=== PATIENT | female | born 1985 | race Caucasian/White ===

== ENCOUNTER → 2016-05-16 | Outpatient (CLI) | payer BC ==
[2016-05-16 13:09] LABS: ABSOLUTE BASOPHILS # (AUTO) 0.1 10^3/uL (0.0-0.2); ABSOLUTE EOSINOPHILS # (AUTO) 0.3 10^3/uL (0.0-0.6); ABSOLUTE LYMPHOCYTES (AUTO) 3.1 10^3/uL (0.5-4.7); ABSOLUTE MONOCYTES (AUTO) 0.3 10^3/uL (0.1-1.4); BASOPHILS % (AUTO) 0.8 % (0-2); EOSINOPHILS % (AUTO) 3.9 % (0-6); HEMATOCRIT 36.2 % (36.0-47.0); HGB HCT DIFFERENCE -0.2; LYMPHOCYTES % (AUTO) 39.8 % (13-45); MEAN CORPUSCULAR HEMOGLOBIN 29.1 pg (27.0-33.4); MEAN CORPUSCULAR HGB CONC 33.2 g/dL (32.0-36.0); MEAN CORPUSCULAR VOLUME 88 fl (80-97); MONOCYTES % (AUTO) 4.4 % (3-13); RED BLOOD COUNT 4.12 10^6/uL (3.72-5.28); SEGMENTED NEUTROPHILS % (AUTO) 51.1 % (42-78); WHITE BLOOD COUNT 7.8 10^3/uL (4.0-10.5)
[2016-05-16 13:23] LABS: ALANINE AMINOTRANSFERASE 28 U/L (9-52); ALBUMIN 4.5 g/dL (3.5-5.0); ALKALINE PHOSPHATASE 64 U/L (38-126); ANION GAP 9 (5-19); ASPARTATE AMINO TRANSFERASE 16 U/L (14-36); BILIRUBIN,TOTAL 0.3 mg/dL (0.2-1.3); BLOOD UREA NITROGEN 12 mg/dL (7-20); CARBON DIOXIDE 26 mmol/L (22-30); CHLORIDE 106 mmol/L (98-107); CHOLESTEROL 133.86 mg/dL (0-200); CREATININE RESULT 1.09 mg/dL (0.52-1.25); Direct HDL 39 mg/dL (>40); GLUCOSE 100 mg/dL (75-110); POTASSIUM 4.5 mmol/L (3.6-5.0); SODIUM 141.4 mmol/L (137-145); TOTAL PROTEIN 6.9 g/dL (6.3-8.2); TRIGLYCERIDES 232 mg/dL (<150)
[2016-05-16 13:34] LABS: DIRECT LDL 61 mg/dL (<100)
[2016-05-16 13:38] LABS: VLDL CHOLESTEROL 46.4 mg/dL (10-31)
[2016-05-16 13:49] LABS: THYROID STIMULATING HORMONE 0.39 uIU/mL (0.47-4.68)
== END ==
LOC: OD 12:16
PROVIDERS: ATTEND Physician Assistant
DX: F31.32 Bipolar disorder, current episode depressed, moderate (principal); Z79.899 Other long term (current) drug therapy
CPT/HCPCS: 36415; 80053; 80061; 80178; 83036; 84439; 84443; 85025

== ENCOUNTER → 2016-06-13 | Outpatient (CLI) | payer BC ==
[2016-06-15 11:38] LABS: THYROID PEROXIDASE (TPO) AB 10 IU/mL (0-34)
[2016-06-15 13:13] LABS: THYROGLOBULIN AB <1.0 IU/mL (0.0-0.9)
== END ==
LOC: OD 14:26
PROVIDERS: ATTEND Physician Assistant
DX: F31.32 Bipolar disorder, current episode depressed, moderate (principal)
CPT/HCPCS: 36415; 84443; 86376

== ENCOUNTER 2016-09-19 11:50 | Inpatient (IN) | payer BC ==
--- NOTE | 2016-09-19 11:58 | ER Document Report ---
ED Psych Disorder / Suicide - General Mode of Arrival: Medic Information source: Relative, Emergency Med Personnel TRAVEL OUTSIDE OF THE [place] IN LAST 30 DAYS: No - HPI Patient complains to provider of: Suicidal attempt Onset: This morning Onset was: Sudden Suicide Risk Factors: Bipolar, Depressed Suicide Attempt Method: Overdose Overdose of: Other - See narrative <KAVEH BRAGA - Last Filed: 09/19/16 14:34> <VIGNESH LUNA - Last Filed: 10/04/16 09:24> - General Chief Complaint: Possible Overdose Stated Complaint: POSSIBLE OVERDOSE Time Seen by Provider: 09/19/16 11:52 Notes: Patient is a 31-year-old female presenting to the emergency department via EMS for possible overdose. Per EMS, patient was found by her teenage daughter. Patient's daughter called her father, who called EMS. It is unclear at this time what exactly the patient took, but her medications that were brought into the emergency department include Azo, BuSpar, lithium carbonate, propranolol, and promethazine. Upon opening the bottle of lithium tablets, it is noted that all of the remaining tablets (approximately 25-30) were opened with no powder remaining. Patient's daughter states that the patient also takes trazodone for sleep. Per patient's daughter, when she woke up she went into her mother's room , and was told to give her dad a call. Shortly thereafter, patient called her daughter back into the room because she began vomiting and developed slurred speech. Patient's states that shortly before his daughter called him, the patient called him to inform him that she that she was developing a kidney infection and did not feel well, and was going to take some sleeping medication and go to sleep. Patient's reports that the patient was struggling with depression, and they moved the appointment up to September 20 instead of September 30 to have her psychiatric medications adjusted. Patient's also states that last night she mentioned the idea of committing suicide due to the overwhelming stress of the behavior of their children and multiple other stressors, but believed after talking to her and calming her down that she would not act on this. Patient is seen at [facility] for her psychiatric medical care. (KAVEH BRAGA) - Related Data Allergies/Adverse Reactions: NSAIDS (Non-Steroidal Anti-Inflamma [Nsaids] Allergy (Intermediate, Verified 12/ 29/16 08:54) Hives iodine [Iodine] Allergy (Mild, Verified 04/11/16 08:54) uticaria povidone-iodine [From Betadine] Allergy (Mild, Verified 04/11/16 08:54) Urticaria Soap [From Betadine] Allergy (Mild, Verified 04/11/16 08:54) Urticaria ketorolac tromethamine [From Toradol] Allergy (Verified 04/11/16 08:54) Sulfa (Sulfonamide Antibiotics) Allergy (Verified 04/11/16 08:54) Home Medications: Current Home Medications Pantoprazole Sodium [Protonix] 40 mg PO DAILY 09/23/16 [History] Propranolol HCl [Inderal 20 mg Tablet] 20 mg PO Q12 09/23/16 [History] Past Medical History - General Information source: Relative, [facility] Records - Social History Smoking Status: Current Every Day Smoker Drug Abuse: Other - Prior substance abuse 2007 Family History: Reviewed & Not Pertinent Neurological Medical History: Reports: Hx Migraine Renal/ Medical History: Reports: Hx Kidney Stones Psychiatric Medical History: Reports: Hx Bipolar Disorder Past Surgical History: Reports: Hx Appendectomy, Hx Cholecystectomy, Hx Hysterectomy, Hx Neurologic Surgery, Hx Oral Surgery - Immunizations Hx Diphtheria, Pertussis, Tetanus Vaccination: Yes Hx Pneumococcal Vaccination: 04/14/05 <KAVEH BRAGA - Last Filed: 09/19/16 14:34> Review of Systems - Review of Systems -: Yes ROS unobtainable due to patient's medical condition <KAVEH BRAGA - Last Filed: 09/19/16 14:34> Physical Exam - General General appearance: Lethargic - Slurring words, incomprehensible. Placed in soft restraints without resistance., Other - Patient incontinent of urine and stool. Covered in pasty brown stool. - HEENT Head: Normocephalic, Atraumatic Eyes: Normal Pupils: Dilated - Reactive to light Mucous membranes: Normal - Respiratory Respiratory status: No respiratory distress Breath sounds: Normal - Cardiovascular Rhythm: Regular Heart sounds: Normal auscultation Murmur: No - Abdominal Inspection: Normal Distension: No distension - Back Back: Normal, Nontender - Extremities General upper extremity: Normal inspection, Nontender, Normal color, Normal ROM , Normal temperature General lower extremity: Normal inspection, Nontender, Normal color, Normal ROM , Normal temperature, Normal weight bearing. No: Sara's sign - Neurological Neuro grossly intact: Yes Cognition: Normal Orientation: Disoriented to person, Disoriented to place, Disoriented to time, Disoriented to events Sanford Coma Scale Eye Opening: Spontaneous Melania Coma Scale Verbal: Incomprehensible Melania Coma Scale Motor: None Melania Coma Scale Total: 7 Speech: Other - Slurred, incomprehensible speech - Skin Skin Temperature: Warm Skin Moisture: Dry Skin Color: Normal - Piloerection <KAVEH BRAGA - Last Filed: 09/19/16 14:34> Course - Laboratory Result Diagrams: 09/19/16 12:10 09/19/16 12:10 <KAVEH BRAGA - Last Filed: 09/19/16 14:34> - Laboratory Result Diagrams: 09/22/16 05:52 09/22/16 05:52 <VIGNESH LUNA - Last Filed: 10/04/16 09:24> - Re-evaluation Re-evalutation: 09/19/16 12:58 Patient presents emergency room via EMS with reported overdose. Reportedly the patient told her 15-year-old daughter not to come into the room. At some point in time the daughter became concerned and called EMS. EMS fire department and please were alternating find any medications but they brought her bottles with her. When I open up her lithium container the outside of the capsule were in there but the inside of the capsules were gone. There is at least 30 tablets. Unknown when these were taken. Family comes later and reports that she told her that she is to take up to go to sleep. Said they did not find any pill bottles EMS and did not find any pill bottles they did bring herself with her that with the lithium bottle is. The lithium bottle was filled on 2016 for 30 mm all 30 are in the year but capsules an hour without the medicine. Also has a bottle of promethazine 25 mg quantity 60 that was filled on 09/07/2016. There are 37 remaining tablets in the bottle. Included in her meds are [id number] Azo. Pill bottle for 20 mg of propranolol filled on quantity 60 there is none remaining in the bottle. As a bottle of BuSpar 15 mg that was filled on 09/13/16 90 tablets. 74 tablets are remaining in the bottle. Will evaluation patient had dilated pupils that were reactive she would speak but her words were so far they were incomprehensible and she would move her extremities to command. There are no focal neurological deficits patient was very sleepy very drowsy with moist mucous membranes piloerection and warm normal skin. No external signs of trauma. Intubated gastric lavage with charcoal lithium is empty but we cannot be certain that she took it recently cannot be certain that there is no other medications at the reason we gave the charcoal and gastric lavage. EKG showed sinus rhythm at 66 bpm with no acute ST segment elevation or depression. Intubated on 110 successfully with no difficulty did not require any additional sedation after the vecuronium for about an hour and a half which receive her diprivan 80 ml of urine output. 09/19/16 13:26 09/19/16 15:49 EKG vital signs stable tox screen positive only for benzodiazepines sedated comfortable on the ventilator spoke with the hospitalist admit ICU critical care intubation altered mental status possible overdose IVC (VIGNESH LUNA) - Vital Signs Vital signs: Temp Pulse Resp BP Pulse Ox 98.8 F 73 20 133/92 H 100 09/23/16 07:19 09/23/16 07:19 09/23/16 07:19 09/23/16 07:19 09/23/16 07:19 - Laboratory Laboratory results interpreted by me: 09/19/16 09/19/16 09/19/16 12:10 12:10 12:10 RDW 14.3 H ABG pO2 ABG Total CO2 ABG O2 Saturation Sodium 146.2 H Potassium 5.4 H Calcium 10.9 H Total Protein 8.5 H Albumin 5.1 H Urine Blood Acetaminophen < 10 L [place] 1.4 H 09/19/16 09/19/16 12:55 12:55 RDW ABG pO2 324.9 H ABG Total CO2 25.9 H ABG O2 Saturation 99.7 H Sodium Potassium Calcium Total Protein Albumin Urine Blood SMALL H Acetaminophen [place] Procedures - Intubation Orotracheal Time of Intubation: 12:16 Airway evaluation: Normal anatomy Medications: Etomidate - 20, Succinylcholine - 100, Vecuronium - 10 Intubation method: Orotracheal Blade type: Yassine ETT size: 7.5 ETT secured at: Lips ETT secured at (cm): 22 Breath Sounds after Intubation: Equal End tidal CO2 confirmed: Yes Ventilator settings: SIMV Tidal volume: 450 Respirations: 12 Pressure support: 10 PEEP: +5 Intubation Complications: No complications <KAVEH BRAGA - Last Filed: 09/19/16 14:34> Critical Care Note - Critical Care Note Total time excluding time spent on procedures (mins): 75 <VIGNESH LUNA - Last Filed: 10/04/16 09:24> Discharge <KAVEH BRAGA - Last Filed: 09/19/16 14:34> - Discharge Admitting Provider: Hospitalist Unit Admitted: ICU <VIGNESH LUNA - Last Filed: 10/04/16 09:24> - Discharge Clinical Impression: altered mental status, possible overdose Condition: Serious Disposition: ADMITTED INPATIENT Scribe Documentation - Scribe Written by Nadia:: Nadia French, 09/19/2016 1158 acting as scribe for :: Eliseo <KAVEH BRAGA - Last Filed: 09/19/16 14:34>
[2016-09-19] MEDS ORDERED: SUCCINYLCHOLINE CHLORIDE INJ 200 MG/10 ML VIAL IV ONE (12:29)
[2016-09-19] MEDS ORDERED: ETOMIDATE INJ/PF 20 MG/10 ML SDV IV ONE (12:29)
[2016-09-19] MEDS ORDERED: ACTIVATED CHARCOAL 25 GM BOTTLE PO ONE (12:30)
[2016-09-19] MEDS ORDERED: VECURONIUM BROMIDE INJ 10 MG VIAL IV ONE ×3 (12:30→14:18)
[2016-09-19] MEDS ORDERED: NORMAL SALINE 1000 ML 3,000 ML IV ONE (12:30)
[2016-09-19 12:39] LABS: ABSOLUTE BASOPHILS # (AUTO) 0.1 10^3/uL (0.0-0.2); ABSOLUTE EOSINOPHILS # (AUTO) 0.4 10^3/uL (0.0-0.6); ABSOLUTE LYMPHOCYTES (AUTO) 4.1 10^3/uL (0.5-4.7); ABSOLUTE MONOCYTES (AUTO) 0.4 10^3/uL (0.1-1.4); ABSOLUTE NEUT (AUTO) 5.1 10^3/uL (1.7-8.2); BASOPHILS % (AUTO) 0.9 % (0-2); EOSINOPHILS % (AUTO) 3.6 % (0-6); HEMATOCRIT 45.3 % (36.0-47.0); HGB HCT DIFFERENCE -0.3; LYMPHOCYTES % (AUTO) 41.1 % (13-45); MEAN CORPUSCULAR HEMOGLOBIN 28.8 pg (27.0-33.4); MEAN CORPUSCULAR VOLUME 87 fl (80-97); MONOCYTES % (AUTO) 3.6 % (3-13); RED BLOOD COUNT 5.21 10^6/uL (3.72-5.28); RED CELL DISTRIBUTION WIDTH 14.3 % (11.5-14.0); SEGMENTED NEUTROPHILS % (AUTO) 50.8 % (42-78)
[2016-09-19 12:48] LABS: ALANINE AMINOTRANSFERASE 28 U/L (9-52); ALBUMIN 5.1 g/dL (3.5-5.0); ALKALINE PHOSPHATASE 63 U/L (38-126); ANION GAP 14 (5-19); ASPARTATE AMINO TRANSFERASE 23 U/L (14-36); BILIRUBIN,DIRECT 0.4 mg/dL (0.0-0.4); BILIRUBIN,TOTAL 0.5 mg/dL (0.2-1.3); BLOOD UREA NITROGEN 18 mg/dL (7-20); CALCIUM 10.9 mg/dL (8.4-10.2); CARBON DIOXIDE 27 mmol/L (22-30); CHLORIDE 105 mmol/L (98-107); CREATININE RESULT 1.03 mg/dL (0.52-1.25); GLUCOSE 110 mg/dL (75-110); POTASSIUM 5.4 mmol/L (3.6-5.0); SODIUM 146.2 mmol/L (137-145); TOTAL PROTEIN 8.5 g/dL (6.3-8.2)
[2016-09-19 12:50] LABS: ALCOHOL < 10 mg/dL (NONE DETECTED)
[2016-09-19 12:55] LABS: CREATINE KINASE MB 0.66 ng/mL (<4.55)
--- NOTE | 2016-09-19 13:03 | RADIOLOGY REPORT (SQ) ---
EXAM DESCRIPTION: CHEST SINGLE VIEW COMPLETED DATE/TIME: 09/19/2016 12:55 pm REASON FOR STUDY: t2 s/p intubation COMPARISON: 08/17/2009 NUMBER OF VIEWS: One view. TECHNIQUE: Single frontal radiographic image of the chest acquired. LIMITATIONS: None. FINDINGS: LUNGS AND PLEURA: No pneumothorax. MEDIASTINUM AND HEART: Heart size normal for technique. SUPPORT DEVICES: Endotracheal tube tip between thoracic inlet and dio. Nasogastric tube extends i nto the left upper quadrant. BONY STRUCTURES: No acute findings. HARDWARE: None. OTHER: No other significant finding. IMPRESSION: Appropriate position of endotracheal and nasogastric tubes. No pneumothorax.
[2016-09-19 13:07] LABS: TROPONIN I < 0.012 ng/mL
[2016-09-19 13:57] LABS: ARTERIAL BLOOD BASE EXCESS -0.3 mmol/L; ARTERIAL BLOOD O2 SATURATION 99.7 % (94-98)
[2016-09-19 14:14] LABS: APPEARANCE,URINE CLEAR; BILIRUBIN,URINE NEGATIVE (NEGATIVE); GLUCOSE, URINE NEGATIVE (NEGATIVE); KETONES,URINE NEGATIVE (NEGATIVE); NITRITE,URINE NEGATIVE (NEGATIVE); PROTEIN,URINE NEGATIVE (NEGATIVE); URINE SPECIFIC GRAVITY 1.011; UROBILINOGEN,URINE NEGATIVE mg/dL (<2.0)
[2016-09-19 14:15] LABS: BACTERIA,URINE TRACE /HPF; HYALINE CASTS, URINE 0-1 /LPF; LEUKOCYTE ESTERASE,URINE NEGATIVE (NEGATIVE); RBC,URINE RARE /HPF; WBC,URINE NONE SEEN /HPF
[2016-09-19 14:26] LABS: URINE BARBITURATES SCREEN NEGATIVE; URINE METHADONE SCREEN NEGATIVE; URINE OPIATES LOW NEGATIVE; URINE PHENCYCLIDINE SCREEN NEGATIVE
[2016-09-19] MEDS ORDERED: SUCCINYLCHOLINE CHLORIDE INJ 200 MG/10 ML VIAL ONE (15:26)
--- NOTE | 2016-09-19 17:02 | PDOC H&P ---
History of Present Illness Admission Date/PCP: 09/19/16 15:54 JAY JAY POTTER MD History of Present Illness: CORI ARCE is a 31 year old white female with a past medical history of bipolar disorder and prescription drug abuse who presents to the service after overdosing. Patient is currently intubated and not able to assist in giving her own medical history. Her has left to take their daughter home. Relatives in the room include her parents, stepparents, horse stud worker, and his . They have offered information about her medical history. this information is obtained from them as well as my discussion with the ER physician and chart review. Apparently, the patient was feeling suicidal last night and expressed her concerns to her spouse. They have a teenage daughter who has psychiatric issues herself and the patient was upset about this and general issues with life. He spoke to her in detail and after the conversation he felt that the patient was stable. He made arrangements for her to meet with a psychiatrist tomorrow. This morning the patient's called from work to check on her and he felt that she was doing well after the conversation. Later on he received a call from his daughter stating that she is was slurring her speech. The patient has prescriptions for multiple medications one of which is temazepam. she was noted to have said that she needed to take medications to help her sleep. This bottle was empty on presentation to the ED. In addition to this the patient had a prescription for lithium filled back in August. Upon inspection of the pills from this bottle it was noted that all the capsules had been opened. It is not clear whether or not the patient overused her lithium. Levels in the emergency room was found to be within expected limits. Her EKG did not show any changes. Urine drug screen, however , did result positive for benzodiazepines. The patient also has a history of prescription opioid abuse. Father who is in the room states that he sent her to rehab last year and that she has been doing well since then. Never been known to take any "street drugs ". Her daughter is also taking psychiatric medications as well. These bottles were brought into the ER as well to evaluate them as a source of the patient's overdose. It Does not seem as though any pills were missing from her daughter's prescriptions. In the emergency room, the patient received charcoal lavage. Also received Narcan without any changes. No flumazenil was given. CT of the head has been ordered but not yet done. Tylenol level, EtOH level were normal Past Medical History Neurological Medical History: Reports: Migraine Psychiatric Medical History: Reports: Bipolar Disorder Past Surgical History Past Surgical History: Reports: Appendectomy, Cholecystectomy, Hysterectomy Social History Information Source: Relative Smoking Status: Current Every Day Smoker Cigarettes Packs Per Day: 1 Number of Years Smokin Frequency of Alcohol Use: None Hx Recreational Drug Use: No Hx Prescription Drug Abuse: Yes Family History Family History: CAD Parental Family History Reviewed: Yes - Patient's mother has bipolar disorder. Children Family History Reviewed: Yes Sibling(s) Family History Reviewed.: Yes Medication/Allergy Home Medications: Cornell Carbonate 300 mg PO QAM 02/10/11 Zolpidem Tartrate [Ambien 10 mg Tablet] 10 mg PO HSP PRN 02/10/11 Benztropine Mesylate [Cogentin 1 mg Tablet] 2 tab PO DAILY 01/07/14 Ciprofloxacin HCl [Cipro 500 mg Tablet] 1 tab PO BID 01/07/14 Citalopram Hydrobromide [Celexa 10 mg Tablet] 10 mg PO QHS 01/07/14 Cornell Carbonate 600 mg PO QHS 01/07/14 Phenylephrine HCl [Sudafed PE] 1 tab PO BID 01/07/14 Promethazine HCl 25 mg PO BID 01/07/14 Propranolol HCl [Inderal 20 mg Tablet] 1 tab PO BID 01/07/14 Metronidazole [Flagyl 500 mg Tablet] 1 tab PO Q8H 01/08/14 Benztropine Mesylate [Cogentin 1 mg Tablet] 2 tab PO BID 03/18/15 Buspirone HCl [Buspar 10 mg Tablet] 10 mg PO BID 03/18/15 Escitalopram Oxalate [Lexapro] 20 mg PO QHS 03/18/15 Levofloxacin [Levaquin 750 mg Tablet] 750 mg PO DAILY #5 tablet 03/18/15 Cornell Carbonate 300 mg PO QAM 03/18/15 Cornell Carbonate 600 mg PO QHS 03/18/15 Oxycodone HCl/Acetaminophen [Percocet 5-325 mg Tablet] 1 - 2 tab PO Q4H PRN #15 tablet 03/18/15 Pantoprazole Sodium 40 mg PO BID 03/18/15 Promethazine HCl [Phenergan 25 mg Tablet] 25 - 50 mg PO ASDIR PRN 03/18/15 Propranolol HCl 40 mg PO BID 03/18/15 Quetiapine Fumarate [Seroquel] 400 mg PO QHS 03/18/15 Trazodone HCl 200 mg PO QHS 03/18/15 Hydrocodone/Acetaminophen [[place] 5-325 mg Tablet] 1 tab PO Q4 PRN #15 tablet 05/30 Metronidazole [Flagyl 500 mg Tablet] 500 mg PO TID #30 tablet 08/14/15 Ondansetron [Zofran Odt 4 mg Tablet] 1 - 2 tab PO Q4HP PRN #10 tab.rapdis Amox Tr/Potassium Clavulanate [Augmentin 875-125 Tablet] 1 tab PO BID 6 Days Oxycodone HCl/Acetaminophen [Percocet 5-325 mg Tablet] 1 - 2 tab PO Q4H PRN #15 tablet 04/04/16 Promethazine HCl [Phenergan 25 mg Tablet] 1 - 2 tab PO Q6H PRN #15 tablet Allergies/Adverse Reactions: NSAIDS (Non-Steroidal Anti-Inflamma [Nsaids] Allergy (Intermediate, Verified 08:54) Hives iodine [Iodine] Allergy (Mild, Verified 04/11/16 08:54) uticaria povidone-iodine [From Betadine] Allergy (Mild, Verified 04/11/16 08:54) Urticaria Soap [From Betadine] Allergy (Mild, Verified 04/11/16 08:54) Urticaria ketorolac tromethamine [From Toradol] Allergy (Verified 04/11/16 08:54) Sulfa (Sulfonamide Antibiotics) Allergy (Verified 04/11/16 08:54) Review of Systems Review of Systems: Review of systems is unobtainable as the patient is sedated and intubated. However, her family mentions that on Friday she complained of "kidney pain" Physical Exam Vital Signs: Temp Pulse Resp BP Pulse Ox 97.4 F 12 102/71 100 09/19/16 15:41 09/19/16 15:41 09/19/16 15:41 09/19/16 15:41 Physical exam: General: This is a well-developed well-nourished appearing white female resting on a ventilator. she has episodes of twitching despite sedation. HEENT: Normocephalic atraumatic. Pupils are equal and reactive to light. Trachea is midline. Heart: Regular rate and rhythm no murmurs rubs or gallops. Lungs: Clear to auscultation from the anterior perspective bilaterally with equal rise and fall the chest Abdomen: Soft nontender nondistended. Diminished bowel sounds. Extremities: No clubbing cyanosis or edema 2+ peripheral pulses. Neuro: Sedated on the ventilator but twitching occasionally despite sedation Results Impressions: Chest X-Ray 09/19/16 00:00 IMPRESSION: Appropriate position of endotracheal and nasogastric tubes. No pneumothorax. Assessment & Plan - Diagnosis (1) Acute respiratory failure Plan: Acute respiratory failure secondary to intentional overdose. The ventilator at least overnight. She is currently on propofol. We may need to change her to fentanyl and Versed if she is fighting against the ventilator at this point. Consult pulmonology for their assistance with the vent (2) Overdose of benzodiazepine Qualifiers: Encounter type: initial encounter Injury intent: intentional self-harm Qualified Code(s): T42.4X2A - Poisoning by benzodiazepines, intentional self-harm, initial encounter Plan: It appears as though this is likely a benzodiazepine overdose. Although we cannot determine that the patient truly has taken any lithium, have been no EKG changes and the levels are within minimally elevated. I will repeat the level tomorrow. We Do not know exactly when she would have taken medications in comparison to when we would actually test for them. Patient remains on the ventilator at this time. I hope that she will be able to be weaned tomorrow. (3) Bipolar disorder Plan: Holding any lithium. The patient has been IVC'd. Once she is medically stable we will have psychiatry come and see her. (4) History of prescription drug abuse Plan: Status post rehab a year ago. - Time Time Spent: 50 to 70 Minutes Anticipated discharge: Other - Inpatient Certification Medical Necessity: Significant Comorbidiites Make Outpatient Treatment Too Risky , Need Close Monitoring Due to Risk of Patient Decompensation
[2016-09-19] MEDS ORDERED: DEXTROSE 50%-WATER 25 GM/50 ML DISP.SYRIN IV PRN ×2 (17:04)
[2016-09-19] MEDS ORDERED: DEXTROSE 40% GEL 15 GM TUBE PO PRN ×2 (17:04)
[2016-09-19] MEDS ORDERED: GLUCAGON,HUMAN RECOMB 1 MG INJ SUBCUT PRN (17:04)
[2016-09-19] MEDS ORDERED: PROPOFOL 100 ML IV ONE (17:19)
[2016-09-19] MEDS: PROPOFOL 100 ML IV PRN ×2 (17:23→22:09)
--- NOTE | 2016-09-19 17:37 | RADIOLOGY REPORT (SQ) ---
EXAM DESCRIPTION: CT HEAD WITHOUT COMPLETED DATE/TIME: 09/19/2016 5:26 pm REASON FOR STUDY: ams COMPARISON: 02/24/2008. TECHNIQUE: Axial images acquired through the brain without intravenous contrast. Images reviewed wi th bone, brain and subdural windows. Images stored on PACS. All CT scanners at this facility use dose modulation, iterative reconstruction, and/or weight based d osing when appropriate to reduce radiation dose to as low as reasonably achievable (ALARA). [facility]: Dose Right [facility]: CareDose [facility]: Dose Right [facility]: Teradose 4D [facility]: MyParichay RADIATION DOSE: 64.61 mGy. LIMITATIONS: None. FINDINGS: VENTRICLES: Normal size and contour. CEREBRUM: No masses. No hemorrhage. No midline shift. Normal olea/white matter differentiation. N o evidence for acute infarction. CEREBELLUM: No masses. No hemorrhage. No alteration of density. No evidence for acute infarction. EXTRAAXIAL SPACES: No fluid collections. No masses. ORBITS AND GLOBE: No intra- or extraconal masses. Normal contour of globe without masses. CALVARIUM: No fracture. PARANASAL SINUSES: No fluid or mucosal thickening. SOFT TISSUES: No mass or hematoma. OTHER: No other significant finding. IMPRESSION: NORMAL BRAIN CT WITHOUT CONTRAST. TECHNICAL DOCUMENTATION: JOB ID: [id number] Quality ID # [id number]: Final reports with documentation of one or more dose reduction techniques (e.g., Au tomated exposure control, adjustment of the mA and/or kV according to patient size, use of iterative reconstruction technique) 2010 [employer]- All Rights Reserved
[2016-09-19] MEDS: DEXTROSE 5%-1/2 NORMAL SALINE 1,000 ML IV PRN (18:06)
[2016-09-19 18:51] LABS: ARTERIAL BLOOD BASE EXCESS -1.2 mmol/L; ARTERIAL BLOOD O2 SATURATION 98.7 % (94-98)
[2016-09-19] MEDS ORDERED: ENOXAPARIN SODIUM INJ 40 MG/0.4 ML DISP.SYRIN SUBCUT ONE (19:00)
[2016-09-20] MEDS: PROPOFOL 100 ML IV PRN ×2 (03:48→08:37)
[2016-09-20 05:08] LABS: ABSOLUTE BASOPHILS # (AUTO) 0.1 10^3/uL (0.0-0.2); ABSOLUTE EOSINOPHILS # (AUTO) 0.2 10^3/uL (0.0-0.6); ABSOLUTE MONOCYTES (AUTO) 0.9 10^3/uL (0.1-1.4); BASOPHILS % (AUTO) 0.5 % (0-2); EOSINOPHILS % (AUTO) 1.5 % (0-6); HEMATOCRIT 39.1 % (36.0-47.0); HGB HCT DIFFERENCE -0.4; LYMPHOCYTES % (AUTO) 19.9 % (13-45); MEAN CORPUSCULAR HEMOGLOBIN 28.2 pg (27.0-33.4); MEAN CORPUSCULAR HGB CONC 32.8 g/dL (32.0-36.0); MEAN CORPUSCULAR VOLUME 86 fl (80-97); MONOCYTES % (AUTO) 5.7 % (3-13); RED BLOOD COUNT 4.55 10^6/uL (3.72-5.28); RED CELL DISTRIBUTION WIDTH 14.4 % (11.5-14.0); SEGMENTED NEUTROPHILS % (AUTO) 72.4 % (42-78); WHITE BLOOD COUNT 15.2 10^3/uL (4.0-10.5)
[2016-09-20 05:10] LABS: HEMOGLOBIN 12.9 g/dL (12.0-15.5)
[2016-09-20 05:23] LABS: ALANINE AMINOTRANSFERASE 27 U/L (9-52); ALKALINE PHOSPHATASE 61 U/L (38-126); ANION GAP 12 (5-19); ASPARTATE AMINO TRANSFERASE 22 U/L (14-36); BILIRUBIN,DIRECT 0.3 mg/dL (0.0-0.4); BILIRUBIN,TOTAL 0.4 mg/dL (0.2-1.3); BLOOD UREA NITROGEN 11 mg/dL (7-20); CALCIUM 9.8 mg/dL (8.4-10.2); CARBON DIOXIDE 24 mmol/L (22-30); CHLORIDE 106 mmol/L (98-107); CREATININE RESULT 0.86 mg/dL (0.52-1.25); GLUCOSE 124 mg/dL (75-110); MAGNESIUM 1.8 mg/dL (1.6-2.3); SODIUM 142.2 mmol/L (137-145); TOTAL PROTEIN 6.8 g/dL (6.3-8.2)
[2016-09-20 05:33] LABS: POTASSIUM 4.4 mmol/L (3.6-5.0)
[2016-09-20 05:41] LABS: ARTERIAL BLOOD BASE EXCESS -0.3 mmol/L; ARTERIAL BLOOD O2 SATURATION 98.3 % (94-98)
--- NOTE | 2016-09-20 06:36 | RADIOLOGY REPORT (SQ) ---
EXAM DESCRIPTION: CHEST SINGLE VIEW COMPLETED DATE/TIME: 09/20/2016 6:17 am REASON FOR STUDY: respiratory failure COMPARISON: 09/19/2016. EXAM PARAMETERS: NUMBER OF VIEWS: One view. TECHNIQUE: Single frontal radiographic view of the chest acquired. RADIATION DOSE: NA LIMITATIONS: None. FINDINGS: LUNGS AND PLEURA: No opacities, masses or pneumothorax. No pleural effusion. MEDIASTINUM AND HILAR STRUCTURES: No masses. Contour normal. HEART AND VASCULAR STRUCTURES: Heart normal in size. Normal vasculature. BONES: No acute findings. HARDWARE: Adequate appearing endotracheal tube and likely adequate partially imaged nasogastric tube. OTHER: No other significant finding. IMPRESSION: No acute cardiopulmonary findings. Lines and tubes. Stable. TECHNICAL DOCUMENTATION: JOB ID: [id number]
[2016-09-20] MEDS: DEXTROSE 5%-1/2 NORMAL SALINE 1,000 ML IV PRN (06:48)
--- NOTE | 2016-09-20 08:23 | PDOC CONSULTATION ---
Consultation Consult Date: 09/19/16 Attending physician:: HEBER ANDRE Consult reason:: resp failure History of Present Illness Admission Date/PCP: 09/19/16 17:04 JAY JAY POTTER MD History of Present Illness: CORI ARCE is a 31 year old white female with a past medical history of bipolar disorder and prescription drug abuse who presents to the service after overdosing. Patient is currently intubated and not able to assist in giving her own medical history. Her has left to take their daughter home. Relatives in the room include her parents, stepparents, printing specialist, and his . They have offered information about her medical history. this information is obtained from them as well as my discussion with the ER physician and chart review. Apparently, the patient was feeling suicidal last night and expressed her concerns to her spouse. They have a teenage daughter who has psychiatric issues herself and the patient was upset about this and general issues with life. He spoke to her in detail and after the conversation he felt that the patient was stable. He made arrangements for her to meet with a psychiatrist tomorrow. This morning the patient's called from work to check on her and he felt that she was doing well after the conversation. Later on he received a call from his daughter stating that she is was slurring her speech. The patient has prescriptions for multiple medications one of which is temazepam. she was noted to have said that she needed to take medications to help her sleep. This bottle was empty on presentation to the ED. In addition to this the patient had a prescription for lithium filled back in August. Upon inspection of the pills from this bottle it was noted that all the capsules had been opened. It is not clear whether or not the patient overused her lithium. Levels in the emergency room was found to be within expected limits. Her EKG did not show any changes. Urine drug screen, however , did result positive for benzodiazepines. The patient also has a history of prescription opioid abuse. Father who is in the room states that he sent her to rehab last year and that she has been doing well since then. Never been known to take any "street drugs ". Her daughter is also taking psychiatric medications as well. These bottles were brought into the ER as well to evaluate them as a source of the patient's overdose. It Does not seem as though any pills were missing from her daughter's prescriptions. In the emergency room, the patient received charcoal lavage. Also received Narcan without any changes. No flumazenil was given. CT of the head has been ordered but not yet done. Tylenol level, EtOH level were normal Past Medical History Neurological Medical History: Reports: Migraine Psychiatric Medical History: Reports: Bipolar Disorder Past Surgical History Past Surgical History: Reports: Appendectomy, Cholecystectomy, Hysterectomy Social History Information Source: [facility] Records Smoking Status: Current Every Day Smoker Cigarettes Packs Per Day: 1 Number of Years Smokin Frequency of Alcohol Use: None Hx Recreational Drug Use: No Hx Prescription Drug Abuse: Yes Family History Family History: CAD Parental Family History Reviewed: No Children Family History Reviewed: No Sibling(s) Family History Reviewed.: No Medication/Allergy Home Medications: [place] Carbonate 300 mg PO QAM 02/10/11 Zolpidem Tartrate [Ambien 10 mg Tablet] 10 mg PO HSP PRN 02/10/11 Benztropine Mesylate [Cogentin 1 mg Tablet] 2 tab PO DAILY 01/07/14 Ciprofloxacin HCl [Cipro 500 mg Tablet] 1 tab PO BID 01/07/14 Citalopram Hydrobromide [Celexa 10 mg Tablet] 10 mg PO QHS 01/07/14 [place] Carbonate 600 mg PO QHS 01/07/14 Phenylephrine HCl [Sudafed PE] 1 tab PO BID 01/07/14 Promethazine HCl 25 mg PO BID 01/07/14 Propranolol HCl [Inderal 20 mg Tablet] 1 tab PO BID 01/07/14 Metronidazole [Flagyl 500 mg Tablet] 1 tab PO Q8H 01/08/14 Benztropine Mesylate [Cogentin 1 mg Tablet] 2 tab PO BID 03/18/15 Buspirone HCl [Buspar 10 mg Tablet] 10 mg PO BID 03/18/15 Escitalopram Oxalate [Lexapro] 20 mg PO QHS 03/18/15 Levofloxacin [Levaquin 750 mg Tablet] 750 mg PO DAILY #5 tablet 03/18/15 [place] 300 mg PO QAM 03/18/15 [place] Carbon[place] 600 mg PO QHS 03/18/15 Oxycodone HCl/Acetaminophen [Percocet 5-325 mg Tablet] 1 - 2 tab PO Q4H PRN #15 tablet 03/18/15 Pantoprazole Sodium 40 mg PO BID 03/18/15 Promethazine HCl [Phenergan 25 mg Tablet] 25 - 50 mg PO ASDIR PRN 03/18/15 Propranolol HCl 40 mg PO BID 03/18/15 Quetiapine Fumarate [Seroquel] 400 mg PO QHS 03/18/15 Trazodone HCl 200 mg PO QHS 03/18/15 Hydrocodone/Acetaminophen [[place] 5-325 mg Tablet] 1 tab PO Q4 PRN #15 tablet 05/30 Metronidazole [Flagyl 500 mg Tablet] 500 mg PO TID #30 tablet 08/14/15 Ondansetron [Zofran Odt 4 mg Tablet] 1 - 2 tab PO Q4HP PRN #10 tab.rapdis Amox Tr/Potassium Clavulanate [Augmentin 875-125 Tablet] 1 tab PO BID 6 Days Oxycodone HCl/Acetaminophen [Percocet 5-325 mg Tablet] 1 - 2 tab PO Q4H PRN #15 tablet 04/04/16 Promethazine HCl [Phenergan 25 mg Tablet] 1 - 2 tab PO Q6H PRN #15 tablet Allergies/Adverse Reactions: NSAIDS (Non-Steroidal Anti-Inflamma [Nsaids] Allergy (Intermediate, Verified 08:54) Hives iodine [Iodine] Allergy (Mild, Verified 04/11/16 08:54) uticaria povidone-iodine [From Betadine] Allergy (Mild, Verified 04/11/16 08:54) Urticaria Soap [From Betadine] Allergy (Mild, Verified 04/11/16 08:54) Urticaria ketorolac tromethamine [From Toradol] Allergy (Verified 04/11/16 08:54) Sulfa (Sulfonamide Antibiotics) Allergy (Verified 04/11/16 08:54) Review of Systems ROS unobtainable: Due to endotracheal tube Physical Exam Vital Signs: Temp Pulse Resp BP Pulse Ox 100.6 F H 66 12 95/68 L 100 09/20/16 06:00 09/19/16 20:00 09/20/16 06:00 09/20/16 05:34 09/20/16 06:00 Intake & Output 09/19/16 09/20/16 09/21/16 06:59 06:59 06:59 Intake Total 1511 Output Total 1985 Balance -474 Weight 80.1 kg General appearance: PRESENT: no acute distress, disheveled, well-developed Head exam: PRESENT: atraumatic, normocephalic Eye exam: PRESENT: conjunctiva pale Mouth exam: PRESENT: dry mucosa, neck supple, other - ET tube Neck exam: ABSENT: carotid bruit, JVD, lymphadenopathy, thyromegaly Respiratory exam: PRESENT: decreased breath sounds, prolonged expiratory phas, rhonchi, symmetrical, unlabored Cardiovascular exam: PRESENT: RRR, +S1, +S2 Pulses: PRESENT: normal radial pulses GI/Abdominal exam: PRESENT: normal bowel sounds, soft. ABSENT: distended, guarding, mass, organolmegaly, rebound, tenderness Rectal exam: PRESENT: deferred Gentrourinary exam: PRESENT: indwelling catheter Musculoskeletal exam: PRESENT: normal inspection Skin exam: PRESENT: dry, warm Results Laboratory Results: 09/20/16 04:40 09/20/16 04:40 09/19/16 09/20/16 09/20/16 18:35 04:40 04:40 WBC 15.2 H RBC 4.55 Hgb 12.9 D Hct 39.1 MCV 86 MCH 28.2 MCHC 32.8 RDW 14.4 H Plt Count 248 Seg Neutrophils % 72.4 Lymphocytes % 19.9 Monocytes % 5.7 Eosinophils % 1.5 Basophils % 0.5 Absolute Neutrophils 11.0 H Absolute Lymphocytes 3.0 Absolute Monocytes 0.9 Absolute Eosinophils 0.2 Absolute Basophils 0.1 Carbonic Acid 1.07 HCO3/H2CO3 Ratio 21:1 ABG pH 7.42 ABG pCO2 35.7 ABG pO2 133.3 H ABG HCO3 22.7 ABG O2 Saturation 98.7 H ABG Base Excess -1.2 FiO2 45% Sodium 142.2 Potassium 4.4 D Chloride 106 Carbon Dioxide 24 Anion Gap 12 BUN 11 Creatinine 0.86 Est GFR ( Amer) > 60 Est GFR (Non-Af Amer) > 60 Glucose 124 H Calcium 9.8 Magnesium 1.8 Total Bilirubin 0.4 AST 22 ALT 27 Alkaline Phosphatase 61 Total Protein 6.8 Albumin 4.0 09/20/16 05:30 WBC RBC Hgb Hct MCV MCH MCHC RDW Plt Count Seg Neutrophils % Lymphocytes % Monocytes % Eosinophils % Basophils % Absolute Neutrophils Absolute Lymphocytes Absolute Monocytes Absolute Eosinophils Absolute Basophils Carbonic Acid 1.21 HCO3/H2CO3 Ratio 20:1 ABG pH 7.40 ABG pCO2 40.3 ABG pO2 118.5 H ABG HCO3 24.4 ABG O2 Saturation 98.3 H ABG Base Excess -0.3 FiO2 40% Sodium Potassium Chloride Carbon Dioxide Anion Gap BUN Creatinine Est GFR ( Amer) Est GFR (Non-Af Amer) Glucose Calcium Magnesium Total Bilirubin AST ALT Alkaline Phosphatase Total Protein Albumin Impressions: Head CT 09/19/16 14:18 IMPRESSION: NORMAL BRAIN CT WITHOUT CONTRAST. Chest X-Ray 09/20/16 06:00 IMPRESSION: No acute cardiopulmonary findings. Lines and tubes. Stable. Assessment & Plan - Diagnosis (1) Bipolar disorder Is this a current diagnosis for this admission?: Yes (2) History of prescription drug abuse Is this a current diagnosis for this admission?: Yes (3) Overdose of benzodiazepine Qualifiers: Encounter type: initial encounter Injury intent: intentional self-harm Qualified Code(s): T42.4X2A - Poisoning by benzodiazepines, intentional self-harm, initial encounter Is this a current diagnosis for this admission?: Yes (4) Acute respiratory failure Is this a current diagnosis for this admission?: Yes - Time Critical Time spent with patient: 35 or more minutes
[2016-09-20] MEDS: ENOXAPARIN SODIUM INJ 40 MG/0.4 ML DISP.SYRIN SUBCUT SCH (08:38)
--- NOTE | 2016-09-20 08:48 | PDOC PROGRESS REPORT ---
Subjective Progress Note for:: 09/20/16 Subjective:: This is a follow-up visit for suicide attempt with benzodiazepine overdose. The patient is currently on pressure support on the ventilator she is awake. She is able to communicate by writing. Her writing is somewhat illegible. I can make out what he is asking. In general she has questions about how she got here, who found her, and in general what happened to her. I have explained to her how she came here. I have asked her directly if she tried to kill herself and she nods yes. Asked about the possibility of her having a urine infection prior to coming into the hospital she has confirmed this in writing. She does not confirm if she is on antibiotic treatment for. Physical Exam Vital Signs: Temp Pulse Resp BP Pulse Ox 100.6 F H 66 12 95/68 L 100 09/20/16 06:00 09/19/16 20:00 09/20/16 06:00 09/20/16 05:34 09/20/16 08:25 Intake & Output 09/19/16 09/20/16 09/21/16 06:59 06:59 06:59 Intake Total 1511 Output Total 1985 Balance -474 Weight 80.1 kg Ventilator: Pressure support Drips: Propofol Lines: Physical exam: General: This is a well-developed well-nourished appearing white female resting on a ventilator. . Heart: Regular rate and rhythm no murmurs rubs or gallops. Lungs: Clear to auscultation from the anterior perspective bilaterally with equal rise and fall the chest Abdomen: Soft nontender nondistended. Active bowel sounds. Extremities: No clubbing cyanosis or edema 2+ peripheral pulses. : Urine is draining. Neuro: Awake on the ventilator. The patient is able to communicate somewhat by writing. As she writes her handwriting turns to scribble and becomes illegible. Results Laboratory Results: 09/20/16 04:40 09/20/16 04:40 09/19/16 09/20/16 09/20/16 18:35 04:40 04:40 WBC 15.2 H RBC 4.55 Hgb 12.9 D Hct 39.1 MCV 86 MCH 28.2 MCHC 32.8 RDW 14.4 H Plt Count 248 Seg Neutrophils % 72.4 Lymphocytes % 19.9 Monocytes % 5.7 Eosinophils % 1.5 Basophils % 0.5 Absolute Neutrophils 11.0 H Absolute Lymphocytes 3.0 Absolute Monocytes 0.9 Absolute Eosinophils 0.2 Absolute Basophils 0.1 Carbonic Acid 1.07 HCO3/H2CO3 Ratio 21:1 ABG pH 7.42 ABG pCO2 35.7 ABG pO2 133.3 H ABG HCO3 22.7 ABG O2 Saturation 98.7 H ABG Base Excess -1.2 FiO2 45% Sodium 142.2 Potassium 4.4 D Chloride 106 Carbon Dioxide 24 Anion Gap 12 BUN 11 Creatinine 0.86 Est GFR ( Amer) > 60 Est GFR (Non-Af Amer) > 60 Glucose 124 H Calcium 9.8 Magnesium 1.8 Total Bilirubin 0.4 AST 22 ALT 27 Alkaline Phosphatase 61 Total Protein 6.8 Albumin 4.0 09/20/16 05:30 WBC RBC Hgb Hct MCV MCH MCHC RDW Plt Count Seg Neutrophils % Lymphocytes % Monocytes % Eosinophils % Basophils % Absolute Neutrophils Absolute Lymphocytes Absolute Monocytes Absolute Eosinophils Absolute Basophils Carbonic Acid 1.21 HCO3/H2CO3 Ratio 20:1 ABG pH 7.40 ABG pCO2 40.3 ABG pO2 118.5 H ABG HCO3 24.4 ABG O2 Saturation 98.3 H ABG Base Excess -0.3 FiO2 40% Sodium Potassium Chloride Carbon Dioxide Anion Gap BUN Creatinine Est GFR ( Amer) Est GFR (Non-Af Amer) Glucose Calcium Magnesium Total Bilirubin AST ALT Alkaline Phosphatase Total Protein Albumin Impressions: Head CT 09/19/16 14:18 IMPRESSION: NORMAL BRAIN CT WITHOUT CONTRAST. Chest X-Ray 09/20/16 06:00 IMPRESSION: No acute cardiopulmonary findings. Lines and tubes. Stable. Assessment & Plan - Diagnosis (1) Acute respiratory failure Is this a current diagnosis for this admission?: YesPlan: Acute respiratory failure secondary to intentional overdose. He is currently on pressure support and is doing well. Continue on this setting for a while longer: hopefully she will be able to be extubated later on today. This was discussed with Dr. Ritter. (2) Overdose of benzodiazepine Qualifiers: Encounter type: initial encounter Injury intent: intentional self-harm Qualified Code(s): T42.4X2A - Poisoning by benzodiazepines, intentional self-harm, initial encounter Is this a current diagnosis for this admission?: YesPlan: It appears as though this is likely a benzodiazepine overdose. [place] levels remain within expected limits. Patient nods yes to question about whether or not she took temazepam to kill herself. Seems to understand the question. Hopefully she will be weaned off the ventilator today. (3) Bipolar disorder Is this a current diagnosis for this admission?: YesPlan: Holding any lithium. The patient has been IVC'd. Once she is medically stable we will have psychiatry come and see her. (4) History of prescription drug abuse Is this a current diagnosis for this admission?: YesPlan: Status post rehab a year ago. (5) Leukocytosis Plan: This may be reaction. However, the patient states that she had a kidney infection. Dialysis was done on admission but does not show any leukocyte esterase. It is unclear if she has been on antibiotics. We will go ahead and send her urine for culture although I doubt it will be useful at this point. He is afebrile. - Time Time Spent with patient: 25-34 minutes - Inpatient Certification Medical Necessity: Need Close Monitoring Due to Risk of Patient Decompensation
--- NOTE | 2016-09-20 11:05 | EKG REPORT ---
SEVERITY:- NORMAL ECG - SINUS RHYTHM : Confirmed by: Sue Rodríguez MD 20-Sep-2016 11:04:23
[2016-09-20] MEDS ORDERED: ACETAMINOPHEN 325 MG SUPP.RECT PR PRN ×2 (12:41→12:44)
[2016-09-20] MEDS ORDERED: ACETAMINOPHEN 650 MG SUPP.RECT PR PRN (12:49)
[2016-09-20] MEDS ORDERED: CEFTRIAXONE 1 GM/D5W RTU 1 GM/50 ML RTUPB IV ONE (14:00)
[2016-09-20] MEDS: ACETAMINOPHEN 325 MG TABLET PO PRN (20:01)
[2016-09-20] MEDS ORDERED: LANSOPRAZOLE 30 MG TAB.RAP.DR PO ONE (22:45)
[2016-09-21] MEDS: ACETAMINOPHEN 325 MG TABLET PO PRN (00:12)
[2016-09-21] MEDS: DEXTROSE 5%-1/2 NORMAL SALINE 1,000 ML IV PRN (04:11)
[2016-09-21 06:09] LABS: ARTERIAL BLOOD BASE EXCESS 0.7 mmol/L; ARTERIAL BLOOD O2 SATURATION 95.7 % (94-98)
[2016-09-21 07:17] LABS: ABSOLUTE BASOPHILS # (AUTO) 0.1 10^3/uL (0.0-0.2); ABSOLUTE EOSINOPHILS # (AUTO) 0.3 10^3/uL (0.0-0.6); ABSOLUTE LYMPHOCYTES (AUTO) 3.9 10^3/uL (0.5-4.7); ABSOLUTE MONOCYTES (AUTO) 0.8 10^3/uL (0.1-1.4); ABSOLUTE NEUT (AUTO) 7.9 10^3/uL (1.7-8.2); BASOPHILS % (AUTO) 0.6 % (0-2); LYMPHOCYTES % (AUTO) 30.3 % (13-45); MEAN CORPUSCULAR HEMOGLOBIN 29.2 pg (27.0-33.4); MEAN CORPUSCULAR HGB CONC 33.4 g/dL (32.0-36.0); MEAN CORPUSCULAR VOLUME 88 fl (80-97); MONOCYTES % (AUTO) 5.9 % (3-13); RED BLOOD COUNT 4.11 10^6/uL (3.72-5.28); RED CELL DISTRIBUTION WIDTH 13.9 % (11.5-14.0); SEGMENTED NEUTROPHILS % (AUTO) 61.2 % (42-78); WHITE BLOOD COUNT 12.9 10^3/uL (4.0-10.5)
[2016-09-21] MEDS: LANSOPRAZOLE 30 MG TAB.RAP.DR PO SCH ×2 (07:18→17:58)
[2016-09-21 07:46] LABS: ANION GAP 14 (5-19); BLOOD UREA NITROGEN 8 mg/dL (7-20); CALCIUM 9.3 mg/dL (8.4-10.2); CARBON DIOXIDE 23 mmol/L (22-30); CHLORIDE 107 mmol/L (98-107); CREATININE RESULT 0.85 mg/dL (0.52-1.25); GLUCOSE 103 mg/dL (75-110); MAGNESIUM 1.7 mg/dL (1.6-2.3); POTASSIUM 3.8 mmol/L (3.6-5.0); SODIUM 143.5 mmol/L (137-145)
--- NOTE | 2016-09-21 07:54 | RADIOLOGY REPORT (SQ) ---
EXAM DESCRIPTION: CHEST SINGLE VIEW COMPLETED DATE/TIME: 09/21/2016 7:27 am REASON FOR STUDY: intubation COMPARISON: 09/20/2016. EXAM PARAMETERS: NUMBER OF VIEWS: One view. TECHNIQUE: Single frontal radiographic view of the chest acquired. RADIATION DOSE: NA LIMITATIONS: None. FINDINGS: LUNGS AND PLEURA: Small atelectasis or scar of the left lower lobe. MEDIASTINUM AND HILAR STRUCTURES: No masses. Contour normal. HEART AND VASCULAR STRUCTURES: Heart normal in size. Normal vasculature. BONES: No acute findings. HARDWARE: None in the chest. Interval extubation. Interval absence of an NG tube. OTHER: No other significant finding. IMPRESSION: New small left lower lobar atelectasis. TECHNICAL DOCUMENTATION: JOB ID: [id number]
[2016-09-21] MEDS: ENOXAPARIN SODIUM INJ 40 MG/0.4 ML DISP.SYRIN SUBCUT SCH (10:26)
--- NOTE | 2016-09-21 10:26 | PDOC PROGRESS REPORT ---
Subjective Progress Note for:: 09/21/16 Subjective:: im ok Physical Exam Vital Signs: Temp Pulse Resp BP Pulse Ox 100.2 F 95 22 H 122/84 100 09/20/16 23:22 09/21/16 07:12 09/21/16 08:04 09/21/16 08:04 09/21/16 08:04 Intake & Output 09/20/16 09/21/16 09/22/16 06:59 06:59 06:59 Intake Total 1514 Output Total 1984 Balance -474 134 -65 Weight 80.1 kg 82.2 kg General appearance: PRESENT: no acute distress, disheveled, well-developed, well -nourished Head exam: PRESENT: atraumatic, normocephalic Eye exam: PRESENT: conjunctiva pale, EOMI Mouth exam: PRESENT: moist, neck supple Neck exam: ABSENT: carotid bruit, JVD, lymphadenopathy, thyromegaly Respiratory exam: PRESENT: rhonchi, symmetrical, unlabored Cardiovascular exam: PRESENT: RRR, +S1, +S2 Pulses: PRESENT: normal radial pulses GI/Abdominal exam: PRESENT: normal bowel sounds, soft. ABSENT: distended, guarding, mass, organolmegaly, rebound, tenderness Rectal exam: PRESENT: deferred Musculoskeletal exam: PRESENT: normal inspection Neurological exam: PRESENT: alert, awake Skin exam: PRESENT: dry, warm Results Laboratory Results: 09/21/16 07:02 09/21/16 07:02 09/21/16 09/21/16 09/21/16 05:55 07:02 07:02 WBC 12.9 H RBC 4.11 Hgb 12.0 Hct 36.0 MCV 88 MCH 29.2 MCHC 33.4 RDW 13.9 Plt Count 197 Seg Neutrophils % 61.2 Lymphocytes % 30.3 Monocytes % 5.9 Eosinophils % 2.0 Basophils % 0.6 Absolute Neutrophils 7.9 Absolute Lymphocytes 3.9 Absolute Monocytes 0.8 Absolute Eosinophils 0.3 Absolute Basophils 0.1 Carbonic Acid 1.24 HCO3/H2CO3 Ratio 20:1 ABG pH 7.41 ABG pCO2 41.3 ABG pO2 78.7 L ABG HCO3 25.5 ABG O2 Saturation 95.7 ABG Base Excess 0.7 FiO2 ROOM AIR Sodium 143.5 Potassium 3.8 Chloride 107 Carbon Dioxide 23 Anion Gap 14 BUN 8 Creatinine 0.85 Est GFR ( Amer) > 60 Est GFR (Non-Af Amer) > 60 Glucose 103 Calcium 9.3 Magnesium 1.7 Impressions: Head CT 09/19/16 14:18 IMPRESSION: NORMAL BRAIN CT WITHOUT CONTRAST. Chest X-Ray 09/21/16 06:00 IMPRESSION: New small left lower lobar atelectasis. Assessment & Plan - Diagnosis (1) Bipolar disorder Is this a current diagnosis for this admission?: Yes (2) History of prescription drug abuse Is this a current diagnosis for this admission?: Yes (3) Overdose of benzodiazepine Qualifiers: Encounter type: initial encounter Injury intent: intentional self-harm Qualified Code(s): T42.4X2A - Poisoning by benzodiazepines, intentional self-harm, initial encounter Is this a current diagnosis for this admission?: Yes (4) Acute respiratory failure Is this a current diagnosis for this admission?: No - Time Critical Time spent with patient: 25-34 minutes
[2016-09-21] MEDS: NICOTINE 21 MG/24 HR PATCH.TD24 TD PRN (10:35)
[2016-09-21] MEDS: CEFTRIAXONE 1 GM/D5W RTU 50 ML IV SCH (10:36)
--- NOTE | 2016-09-21 12:34 | PDOC PROGRESS REPORT ---
Subjective Progress Note for:: 09/21/16 Subjective:: This is a follow-up visit for suicide attempt with benzodiazepine overdose. The patient has been extubated. She is accompanied by her today. She Has multiple questions about whether or not she has been involuntarily committed. She tells me that she took a total of 46 propranolol pills, 23 Haldol, 16 lithium pills, 96 trazodone pills, and a couple of pills from her daughter's old prescription. The patient took 2 doses of lansoprazole and 2 doses of Phenergan in order to help keep these pills down. Her says that when he got home he saw a great deal of vomit on at the bedside particularly blue colored vomit. The patient states that her propranolol pills were blue. She also asks me what she did wrong in order to not have been successful by herself. Asked her directly if she still wanted to kill herself. The patient states that she is not sure. In about a minute she then says she would not kill herself because she needs to ensure that her children are safe. She asked me if she can go home to take care of her children prior to being committed anywhere. She was told no. States that the Heart catheter is hurting and would like to have it out. She also asks for a nicotine patch. She thinks that at this point she should be out of the ICU and that is no longer needed. Physical Exam Vital Signs: Temp Pulse Resp BP Pulse Ox 100.2 F 95 22 H 122/84 100 09/20/16 23:22 09/21/16 07:12 09/21/16 08:04 09/21/16 08:04 09/21/16 08:04 Intake & Output 09/20/16 09/21/16 09/22/16 06:59 06:59 06:59 Intake Total 1511 2134 Output Total 1984 Balance -474 134 -65 Weight 80.1 kg 82.2 kg Physical exam: General: This is a well-developed well-nourished appearing white female resting in a chair Heart: Regular rate and rhythm no murmurs rubs or gallops. Lungs: Clear to auscultation bilaterally with equal rise and fall the chest Abdomen: Soft nontender nondistended. Active bowel sounds. Extremities: No clubbing cyanosis or edema 2+ peripheral pulses. : Urine is draining in heart. Neuro:Awake and alert. Results Laboratory Results: 09/21/16 07:02 09/21/16 07:02 09/21/16 09/21/16 09/21/16 05:55 07:02 07:02 WBC 12.9 H RBC 4.11 Hgb 12.0 Hct 36.0 MCV 88 MCH 29.2 MCHC 33.4 RDW 13.9 Plt Count 197 Seg Neutrophils % 61.2 Lymphocytes % 30.3 Monocytes % 5.9 Eosinophils % 2.0 Basophils % 0.6 Absolute Neutrophils 7.9 Absolute Lymphocytes 3.9 Absolute Monocytes 0.8 Absolute Eosinophils 0.3 Absolute Basophils 0.1 Carbonic Acid 1.24 HCO3/H2CO3 Ratio 20:1 ABG pH 7.41 ABG pCO2 41.3 ABG pO2 78.7 L ABG HCO3 25.5 ABG O2 Saturation 95.7 ABG Base Excess 0.7 FiO2 ROOM AIR Sodium 143.5 Potassium 3.8 Chloride 107 Carbon Dioxide 23 Anion Gap 14 BUN 8 Creatinine 0.85 Est GFR ( Amer) > 60 Est GFR (Non-Af Amer) > 60 Glucose 103 Calcium 9.3 Magnesium 1.7 Impressions: Head CT 09/19/16 14:18 IMPRESSION: NORMAL BRAIN CT WITHOUT CONTRAST. Chest X-Ray 09/21/16 06:00 IMPRESSION: New small left lower lobar atelectasis. Assessment & Plan - Diagnosis (1) Acute respiratory failure Is this a current diagnosis for this admission?: YesPlan: Acute respiratory failure secondary to intentional overdose. Resolved. The patient has been extubated (2) Overdose of benzodiazepine Qualifiers: Encounter type: initial encounter Injury intent: intentional self-harm Qualified Code(s): T42.4X2A - Poisoning by benzodiazepines, intentional self-harm, initial encounter Is this a current diagnosis for this admission?: YesPlan: States that she did not take any benzodiazepines in an effort to overdose and asked if she could be restarted on the. We will wait for psych to come and see her. (3) Bipolar disorder Is this a current diagnosis for this admission?: YesPlan: \Await psych evaluation. (4) History of prescription drug abuse Is this a current diagnosis for this admission?: YesPlan: Status post rehab a year ago. (5) Leukocytosis Plan: Patient states she is feeling better on the antibiotics. She says that she was not taking antibiotics at home as an outpatient. She states that she usually gets multiple urinary tract infection a year. (6) Suicide attempt by beta [place] overdose Plan: Management as per above. Await psych assessment. - Time Time Spent with patient: 25-34 minutes - Inpatient Certification Medical Necessity: Need Close Monitoring Due to Risk of Patient Decompensation
[2016-09-21] MEDS ORDERED: FLUCONAZOLE 100 MG TABLET PO ONE (17:00)
[2016-09-21] MEDS: IBUPROFEN 400 MG TABLET PO PRN (21:27)
[2016-09-21] MEDS: BUSPIRONE HCL 10 MG TABLET PO SCH (21:27)
[2016-09-21] MEDS: PROPRANOLOL HCL 20 MG TABLET PO SCH (21:28)
[2016-09-21] MEDS: DIVALPROEX SODIUM 250 MG TABLET.DR PO SCH (21:28)
[2016-09-22] MEDS: LANSOPRAZOLE 30 MG TAB.RAP.DR PO SCH ×2 (06:10→17:28)
[2016-09-22 06:31] LABS: ABSOLUTE BASOPHILS # (AUTO) 0.1 10^3/uL (0.0-0.2); ABSOLUTE EOSINOPHILS # (AUTO) 0.5 10^3/uL (0.0-0.6); ABSOLUTE LYMPHOCYTES (AUTO) 3.5 10^3/uL (0.5-4.7); ABSOLUTE MONOCYTES (AUTO) 0.6 10^3/uL (0.1-1.4); ABSOLUTE NEUT (AUTO) 6.4 10^3/uL (1.7-8.2); BASOPHILS % (AUTO) 0.8 % (0-2); EOSINOPHILS % (AUTO) 4.1 % (0-6); HEMATOCRIT 34.3 % (36.0-47.0); HEMOGLOBIN 11.2 g/dL (12.0-15.5); HGB HCT DIFFERENCE -0.7; LYMPHOCYTES % (AUTO) 31.5 % (13-45); MEAN CORPUSCULAR HEMOGLOBIN 28.5 pg (27.0-33.4); MEAN CORPUSCULAR HGB CONC 32.7 g/dL (32.0-36.0); MEAN CORPUSCULAR VOLUME 87 fl (80-97); MONOCYTES % (AUTO) 5.5 % (3-13); RED BLOOD COUNT 3.93 10^6/uL (3.72-5.28); RED CELL DISTRIBUTION WIDTH 13.9 % (11.5-14.0); SEGMENTED NEUTROPHILS % (AUTO) 58.1 % (42-78)
[2016-09-22 06:51] LABS: ANION GAP 12 (5-19); BLOOD UREA NITROGEN 11 mg/dL (7-20); CALCIUM 9.4 mg/dL (8.4-10.2); CARBON DIOXIDE 22 mmol/L (22-30); CHLORIDE 109 mmol/L (98-107); CREATININE RESULT 0.83 mg/dL (0.52-1.25); GLUCOSE 101 mg/dL (75-110); MAGNESIUM 1.9 mg/dL (1.6-2.3); POTASSIUM 4.1 mmol/L (3.6-5.0); SODIUM 142.9 mmol/L (137-145)
[2016-09-22] MEDS: ENOXAPARIN SODIUM INJ 40 MG/0.4 ML DISP.SYRIN SUBCUT SCH (08:27)
[2016-09-22] MEDS: IBUPROFEN 400 MG TABLET PO PRN ×2 (08:27→23:26)
[2016-09-22] MEDS ORDERED: FLUCONAZOLE 100 MG TABLET PO ONE (08:30)
[2016-09-22] MEDS: DIVALPROEX SODIUM 250 MG TABLET.DR PO SCH ×2 (09:05→21:46)
[2016-09-22] MEDS: CEFTRIAXONE 1 GM/D5W RTU 50 ML IV SCH (09:05)
[2016-09-22] MEDS: PROPRANOLOL HCL 20 MG TABLET PO SCH ×2 (09:05→21:46)
[2016-09-22] MEDS: BUSPIRONE HCL 10 MG TABLET PO SCH ×2 (09:05→21:46)
--- NOTE | 2016-09-22 09:21 | PSYCHOLOGICAL NOTE ---
Psych Note - Psych Note Psych Note: Met with Patient. Initially Patient wanted to discuss her daughter who I am very familiar with. It took a great deal of redirecting for Patient to focus on self. Patient reported she overdosed because she felt she could no longer manage the stress in her life, felt her daughter would be better off without her , her son could live a "normal" life because she has not been able to give him full attention, and her would no longer have the financial burden they currently have. Spent a great deal of time with Patient discussing the effects of suicide and how it really impacts family members, friends, etc. Discussed with Patient various resources in the [place] as well as though outside of the State that might be helpful in addressing her daughter's problems. Discussed with Patient her own treatment and the need for her to attend her own counseling sessions as she is responsible for changing her own behavior versus trying to change those around her. Patient was focused on blaming self for all of her daughter's problems and required education and redirection to reality. Discussed some neuroscience education with Patient at her request regarding serotonin and dopamine and medications, as best I was able, and referred her to her physician for continued questions / answers. Patient has a history of inpatient psychiatric care at [facility] approximately 10 years ago for overdose. Initially Patient would not commit to safety plan or plan of care, but stated she feels hope in helping her daughter and no longer feels suicidal. I do not feel the crisis is over and believe the Patient remains at high risk for attempting to by suicide again should she be discharged at this time. Her attempt could have been lethal given the amount of medication she took. The relationships in the family are physically and emotionally volatile and taxing, and the Patient is felt to be not psychologically strong enough at this time to cognitively manage that level of stress, given her failed coping. Patient is recommended to remain on IVC and upon medical clearance, inpatient psychiatric hospitalization pursued for treatment and stabilization. Thank you for this referral. Please do not hesitate to contact the Behavioral Health Office at [phone] with questions pertaining to this evaluation.
--- NOTE | 2016-09-22 15:00 | PDOC PROGRESS REPORT ---
Subjective Subjective:: This is a follow-up visit for suicide attempt with with multiple medications resulting in overdose. Patient states she saw the psychiatry service today. She Questions as to why her amphetamines have not been restarted for her ADHD. Physical Exam Vital Signs: Temp Pulse Resp BP Pulse Ox 97.9 F 71 15 120/66 100 09/22/16 08:05 09/22/16 08:05 09/22/16 08:05 09/22/16 08:05 09/22/16 08:05 Intake & Output 09/21/16 09/22/16 09/23/16 06:59 06:59 06:59 Intake Total 2134 1314 Output Total 1999 290 Balance 134 1024 Weight 82.2 kg 82.4 kg Physical exam: General: This is a well-developed well-nourished appearing white female resting in a chair Heart: Regular rate and rhythm no murmurs rubs or gallops. Lungs: Clear to auscultation bilaterally with equal rise and fall the chest Abdomen: Soft nontender nondistended. Active bowel sounds. Extremities: No clubbing cyanosis or edema 2+ peripheral pulses. Neuro:Awake and alert. Oriented cranial nerves II through XII are grossly intact Results Laboratory Results: 09/22/16 05:52 09/22/16 05:52 09/22/16 09/22/16 05:52 05:52 WBC 11.0 H RBC 3.93 Hgb 11.2 L Hct 34.3 L MCV 87 MCH 28.5 MCHC 32.7 RDW 13.9 Plt Count 208 Seg Neutrophils % 58.1 Lymphocytes % 31.5 Monocytes % 5.5 Eosinophils % 4.1 Basophils % 0.8 Absolute Neutrophils 6.4 Absolute Lymphocytes 3.5 Absolute Monocytes 0.6 Absolute Eosinophils 0.5 Absolute Basophils 0.1 Sodium 142.9 Potassium 4.1 Chloride 109 H Carbon Dioxide 22 Anion Gap 12 BUN 11 Creatinine 0.83 Est GFR ( Amer) > 60 Est GFR (Non-Af Amer) > 60 Glucose 101 Calcium 9.4 Magnesium 1.9 09/20/16 09:20 Clean Catch Midstream Urine Culture - Final NO GROWTH 2 DAYS Impressions: Head CT 09/19/16 14:18 IMPRESSION: NORMAL BRAIN CT WITHOUT CONTRAST. Chest X-Ray 09/21/16 06:00 IMPRESSION: New small left lower lobar atelectasis. Assessment & Plan - Diagnosis (1) Acute respiratory failure Is this a current diagnosis for this admission?: YesPlan: Acute respiratory failure secondary to intentional overdose. Resolved. The patient has been extubated (2) Overdose of benzodiazepine Qualifiers: Encounter type: initial encounter Injury intent: intentional self-harm Qualified Code(s): T42.4X2A - Poisoning by benzodiazepines, intentional self-harm, initial encounter Is this a current diagnosis for this admission?: YesPlan: The patient overdosed on multiple medications. Is to be doing well at this point. (3) Bipolar disorder Is this a current diagnosis for this admission?: YesPlan: As per psychiatric recommendations. (4) History of prescription drug abuse Is this a current diagnosis for this admission?: YesPlan: Status post rehab a year ago. (5) Leukocytosis Plan: Leukocytosis is nearly resolved. Being treated empirically for UTI. Also complains of yeast infection with the antibiotics that she was given Diflucan 1. discontinue antibiotics after today. (6) Suicide attempt by beta nolan overdose Plan: Management as per above. From a medical perspective, the patient is ready for discharge to inpatient psych for her treatment. - Time Time Spent with patient: 15-24 minutes - Inpatient Certification Medical Necessity: Risk of Complication if Not Cared For in Hospital
[2016-09-23] MEDS: LANSOPRAZOLE 30 MG TAB.RAP.DR PO SCH (05:24)
[2016-09-23] MEDS: NICOTINE 21 MG/24 HR PATCH.TD24 TD PRN (05:26)
[2016-09-23] MEDS: ENOXAPARIN SODIUM INJ 40 MG/0.4 ML DISP.SYRIN SUBCUT SCH (10:34)
[2016-09-23] MEDS: CEFTRIAXONE 1 GM/D5W RTU 50 ML IV SCH (10:34)
[2016-09-23] MEDS: BUSPIRONE HCL 10 MG TABLET PO SCH (10:43)
[2016-09-23] MEDS: PROPRANOLOL HCL 20 MG TABLET PO SCH (10:43)
[2016-09-23] MEDS: DIVALPROEX SODIUM 250 MG TABLET.DR PO SCH (10:43)
[2016-09-23 10:44] VITALS: BP 133/92
[2016-09-23] MEDS: IBUPROFEN 400 MG TABLET PO PRN (13:45)
--- NOTE | 2016-09-23 14:50 | PDOC DISCHARGE SUMMARY ---
General - Admit/Disc Date/PCP Admission Date/Primary Care Provider: 09/19/16 17:04 JAY JAY POTTER MD Discharge Date: 09/23/16 - Discharge Diagnosis (1) Acute respiratory failure Is this a current diagnosis for this admission?: YesSummary: Secondary to drug overdose. Patient is status post intubation and doing well. (2) Overdose of benzodiazepine Is this a current diagnosis for this admission?: YesSummary: The patient is currently doing well. She is going to the psych unit at [facility] (3) Bipolar disorder Is this a current diagnosis for this admission?: YesSummary: Continue current medications. (4) History of prescription drug abuse Is this a current diagnosis for this admission?: YesSummary: Patient has a history of this and went to rehab a year ago. (5) Leukocytosis Summary: Secondary to UTI clinically diagnosed. Status post Rocephin 3 days. (6) Suicide attempt by beta nolan overdose Summary: As above. - Additional Information Resuscitation Status: Full Code Home Medications: Escalon Carbonate 300 mg PO QAM 02/10/11 Zolpidem Tartrate [Ambien 10 mg Tablet] 10 mg PO HSP PRN 02/10/11 Benztropine Mesylate [Cogentin 1 mg Tablet] 2 tab PO DAILY 01/07/14 Ciprofloxacin HCl [Cipro 500 mg Tablet] 1 tab PO BID 01/07/14 Citalopram Hydrobromide [Celexa 10 mg Tablet] 10 mg PO QHS 01/07/14 Escalon Carbonate 600 mg PO QHS 01/07/14 Phenylephrine HCl [Sudafed PE] 1 tab PO BID 01/07/14 Promethazine HCl 25 mg PO BID 01/07/14 Propranolol HCl [Inderal 20 mg Tablet] 1 tab PO BID 01/07/14 Metronidazole [Flagyl 500 mg Tablet] 1 tab PO Q8H 01/08/14 Buspirone HCl [Buspar 10 mg Tablet] 10 mg PO Q12 tablet 09/23/16 Pantoprazole Sodium [Protonix] 40 mg PO DAILY 09/23/16 Propranolol HCl [Inderal 20 mg Tablet] 20 mg PO Q12 09/23/16 Propranolol HCl [Inderal 20 mg Tablet] 20 mg PO Q12 tablet 09/23/16 History of Present Illness History of Present Illness: CORI ARCE is a 31 year old white female with a past medical history of bipolar disorder and prescription drug abuse who presents to the service after overdosing. Patient is currently intubated and not able to assist in giving her own medical history. Her has left to take their daughter home. Relatives in the room include her parents, stepparents, cool roofing installer, and his . They have offered information about her medical history. this information is obtained from them as well as my discussion with the ER physician and chart review. Apparently, the patient was feeling suicidal last night and expressed her concerns to her spouse. They have a teenage daughter who has psychiatric issues herself and the patient was upset about this and general issues with life. He spoke to her in detail and after the conversation he felt that the patient was stable. He made arrangements for her to meet with a psychiatrist tomorrow. This morning the patient's called from work to check on her and he felt that she was doing well after the conversation. Later on he received a call from his daughter stating that she is was slurring her speech. The patient has prescriptions for multiple medications one of which is temazepam. she was noted to have said that she needed to take medications to help her sleep. This bottle was empty on presentation to the ED. In addition to this the patient had a prescription for lithium filled back in August. Upon inspection of the pills from this bottle it was noted that all the capsules had been opened. It is not clear whether or not the patient overused her lithium. Levels in the emergency room was found to be within expected limits. Her EKG did not show any changes. Urine drug screen, however , did result positive for benzodiazepines. The patient also has a history of prescription opioid abuse. Father who is in the room states that he sent her to rehab last year and that she has been doing well since then. Never been known to take any "street drugs ". Her daughter is also taking psychiatric medications as well. These bottles were brought into the ER as well to evaluate them as a source of the patient's overdose. It Does not seem as though any pills were missing from her daughter's prescriptions. In the emergency room, the patient received charcoal lavage. Also received Narcan without any changes. No flumazenil was given. CT of the head has been ordered but not yet done. Tylenol level, EtOH level were normal Hospital Course Hospital Course: The patient was admitted on ventilator support. She was able to be extubated the following day. After that she was seen by the psychiatric service still be a danger to herself. She could not answer definitively whether or not she still had wishes to kill herself. Patient was downgraded and sent to medical floor. He did for presumed urinary tract infection based off of symptoms that she expressed having as well as yeast infection after having been on antibiotics. She is now medically clear and fit to be discharged to inpatient psych. Physical Exam Vital Signs: Temp Pulse Resp BP Pulse Ox 98.8 F 73 20 133/92 H 100 09/23/16 07:19 09/23/16 07:19 09/23/16 07:19 09/23/16 07:19 09/23/16 07:19 Intake & Output 09/22/16 09/23/16 09/24/16 06:59 06:59 06:59 Intake Total 1314 1440 Output Total 290 Balance 1024 1440 Weight 82.4 kg 82 kg Physical exam: General: This is a well-developed well-nourished appearing white female resting in a chair Heart: Regular rate and rhythm no murmurs rubs or gallops. Lungs: Clear to auscultation bilaterally with equal rise and fall the chest Abdomen: Soft nontender nondistended. Active bowel sounds. Extremities: No clubbing cyanosis or edema 2+ peripheral pulses. Neuro:Awake and alert. Oriented cranial nerves II through XII are grossly intact Results Laboratory Results: 09/22/16 05:52 09/22/16 05:52 09/20/16 09:20 Clean Catch Midstream Urine Culture - Final NO GROWTH 2 DAYS Impressions: Head CT 09/19/16 14:18 IMPRESSION: NORMAL BRAIN CT WITHOUT CONTRAST. Chest X-Ray 09/21/16 06:00 IMPRESSION: New small left lower lobar atelectasis. Qualifiers PATEINT BEING DISCHARGED WITH ANY OF THE FOLLOWING DIAGNOSIS?: No Plan Time Spent: Greater than 30 Minutes - Coordination of CARE to include face-to- face time of 10 minutes, renewal of IVC papers coordination of care with psychiatry throughout the day.
--- NOTE | 2016-09-23 15:12 | PSYCHOLOGICAL NOTE ---
Psych Note - Psych Note Psych Note: Patient is a 31 year old female admitted to the fourth floor due to an intentional OD. She reported she purposefully took Propanolol, Trazodone, [place], and Haldol. She further stated there wasn't much Haldol as it was almost gone, however the other 3 medications had just been filled. She stated she took 46 Propanolol and commented how it likely will not help her with sleep now. She stated she has only slept 4 hours the past 2 days. She reported she also took Phenergan and something for acid reflux so she wouldn't vomit. She identified she sees Elijah Rodrigues at [facility] for medication management and he has been decreasing her [place] over the past 2 months due to her "trying to lose weight and feeling foggy." She stated she had been on 900MG of [place] previously but she had been down to 150MG at time of coming to the ED. She stated she is being treated for ADHD (said she is supposed to be prescribed Ritalin) and Bipolar. She reported years ago she was hospitalized at [facility] , they diagnosed her with Bipolar, and for the past 2 years she had not had issues with "highs and lows." She reported when she was younger her daquan was anger and rage, however now she internalizes more and her daquan is panic. She identified she "had multiple stressors at once and snapped." She stated a couple weeks ago she felt "funny emotionally, began to shut down, and has felt like she was on autopilot." She acknowledged that when she first woke up she was upset she was alive, but after spending time with family (son, , best friend from [place]) she "feels okay today that it didn't work out." She denied SI today, that she feels clearer, still has anxiety, and never wanted to hurt anyone else. She admitted to previous SI thoughts but never taking action before. She inquired about therapists in the area who specialize in eating disorders. She stated she has had therapy when she was younger for this issue and wants to go to someone that is not part of [facility]. Encouraged her to be open when she goes to an inpatient facility about this as they can aid in linking her. Patient presented alert and oriented x4. Mood was depressed with flat affect. She denied SI/HI today while admitting when she first woke up she was upset she was alive. She did not appear to be responding to internal stimuli AEB fair eye contact and answering questions appropriately when addressed. Thought processes were linear. Conversational speech was WNL for rate, tone, and prosody. Intellectual abilities are estimated to be average. Insight, judgment and impulse control are poor AEB concern for her daughter's mental health and treatment versus her own at this time. Diagnosis: 296.80 (F31.9) Unspecified Bipolar Related Disorder by History Impression/Plan: Recommendation to maintain IVC status. Patient admitted to an intentional OD of multiple prescribed medications, that when she first woke up she was upset she was still alive, and only after visits from family/friends over the weekend she is not suicidal today and okay with it not working out. She stated her [place] had been getting decreased over the past 2 months (from 900MG to 150MG) and commented on multiple stressors. Provided patient with handout information on [facility] (local agency who may be able to provide services to daughter), as well as a therapist in [place] that specializes in eating disorder therapy (patient requested). Consulted with Dr. Coppola regarding the management and care of patient. [facility] accepted to [facility] at 1430. Will move forward with placement.
== END 2016-09-23 16:00 | DRG 917 ==
LOC: ER 11:50 → EH 15:54 → UNDOADMIN 15:54 → ICU 17:04 → EH 17:30 → 4N 09-21 16:51
PROVIDERS: ADMIT Internal Medicine; ATTEND Internal Medicine
PROC: 0BH17EZ Insertion of Endotracheal Airway into Trachea, Via Natural or Artificial Opening (ICD-10-PCS; principal; 2016-09-19)
PROC: 5A1945Z Respiratory Ventilation, 24-96 Consecutive Hours (ICD-10-PCS; 2016-09-19)
DX: T42.4X2A Poisoning by benzodiazepines, intentional self-harm, initial encounter (principal); J96.00 Acute respiratory failure, unspecified whether with hypoxia or hypercapnia; N39.0 Urinary tract infection, site not specified; F31.9 Bipolar disorder, unspecified; Z79.899 Other long term (current) drug therapy; F17.200 Nicotine dependence, unspecified, uncomplicated; Z90.49 Acquired absence of other specified parts of digestive tract; Z90.710 Acquired absence of both cervix and uterus; Z88.8 Allergy status to other drugs, medicaments and biological substances
CPT/HCPCS: 36415; 70450; 71010; 80048; 80053; 80178; 80307; 81001; 81025; 82553; 82803; 83735; 83880; 84484; 85025; 87086; 93005; 93010; 94002; 94003; 94667; 94668; 94799; 99291; 99292; J0330; J0696; J1650; J2704; J3490

== ENCOUNTER → 2017-03-03 | Outpatient (CLI) | payer BC ==
[2017-03-03 09:42] LABS: ABSOLUTE BASOPHILS # (AUTO) 0.1 10^3/uL (0.0-0.2); ABSOLUTE EOSINOPHILS # (AUTO) 0.3 10^3/uL (0.0-0.6); ABSOLUTE LYMPHOCYTES (AUTO) 3.5 10^3/uL (0.5-4.7); ABSOLUTE MONOCYTES (AUTO) 0.4 10^3/uL (0.1-1.4); ABSOLUTE NEUT (AUTO) 4.4 10^3/uL (1.7-8.2); BASOPHILS % (AUTO) 0.8 % (0-2); EOSINOPHILS % (AUTO) 3.4 % (0-6); HEMATOCRIT 38.4 % (36.0-47.0); HGB HCT DIFFERENCE 0.6; LYMPHOCYTES % (AUTO) 39.8 % (13-45); MEAN CORPUSCULAR HEMOGLOBIN 30.2 pg (27.0-33.4); MEAN CORPUSCULAR HGB CONC 33.9 g/dL (32.0-36.0); MEAN CORPUSCULAR VOLUME 89 fl (80-97); MONOCYTES % (AUTO) 4.8 % (3-13); RED CELL DISTRIBUTION WIDTH 13.7 % (11.5-14.0); SEGMENTED NEUTROPHILS % (AUTO) 51.2 % (42-78); WHITE BLOOD COUNT 8.7 10^3/uL (4.0-10.5)
[2017-03-03 10:12] LABS: ALANINE AMINOTRANSFERASE 28 U/L (9-52); ALBUMIN 4.5 g/dL (3.5-5.0); ALKALINE PHOSPHATASE 51 U/L (38-126); ANION GAP 13 (5-19); ASPARTATE AMINO TRANSFERASE 16 U/L (14-36); BILIRUBIN,DIRECT 0.3 mg/dL (0.0-0.4); BILIRUBIN,TOTAL 0.4 mg/dL (0.2-1.3); BLOOD UREA NITROGEN 14 mg/dL (7-20); CALCIUM 9.9 mg/dL (8.4-10.2); CARBON DIOXIDE 24 mmol/L (22-30); CHLORIDE 109 mmol/L (98-107); CHOLESTEROL 114.19 mg/dL (0-200); CREATININE RESULT 0.99 mg/dL (0.52-1.25); Direct HDL 43 mg/dL (>40); GLUCOSE 93 mg/dL (75-110); LITHIUM 0.7 mEq/L (0.6-1.2); POTASSIUM 4.7 mmol/L (3.6-5.0); SODIUM 146.2 mmol/L (137-145); TOTAL PROTEIN 6.7 g/dL (6.3-8.2); TRIGLYCERIDES 142 mg/dL (<150)
[2017-03-03 10:23] LABS: DIRECT LDL 40 mg/dL (<100)
== END ==
LOC: OD 08:31
PROVIDERS: ATTEND Psychiatry & Neurology Psychiatry
DX: F90.0 Attention-deficit hyperactivity disorder, predominantly inattentive type (principal)
CPT/HCPCS: 36415; 80053; 80061; 80178; 84443; 85025

== ENCOUNTER → 2017-04-15 | Day surgery (SDC) | payer BC | LOC: END 15:24 | PROVIDERS: ATTEND Internal Medicine Gastroenterology | PROC: 4A0B78Z Measurement of Gastrointestinal Motility, Via Natural or Artificial Opening (ICD-10-PCS; principal; 2017-04-15) | DX: K21.0 Gastro-esophageal reflux disease with esophagitis (principal); R12 Heartburn; K44.9 Diaphragmatic hernia without obstruction or gangrene; K58.0 Irritable bowel syndrome with diarrhea; Z79.899 Other long term (current) drug therapy; I10 Essential (primary) hypertension | CPT/HCPCS: 91035 ==

== ENCOUNTER → 2017-05-14 | Outpatient (CLI) | payer BC ==
[2017-05-14 08:37] LABS: HEMOGLOBIN 13.2 g/dL (12.0-15.5); MEAN CORPUSCULAR HEMOGLOBIN 29.4 pg (27.0-33.4); MEAN CORPUSCULAR HGB CONC 33.8 g/dL (32.0-36.0); MEAN CORPUSCULAR VOLUME 87 fl (80-97); PLATELET COUNT 339 10^3/uL (150-450); RED BLOOD COUNT 4.49 10^6/uL (3.72-5.28); RED CELL DISTRIBUTION WIDTH 12.9 % (11.5-14.0)
[2017-05-14 08:57] LABS: ALANINE AMINOTRANSFERASE 26 U/L (9-52); ALBUMIN 4.5 g/dL (3.5-5.0); ALKALINE PHOSPHATASE 58 U/L (38-126); ASPARTATE AMINO TRANSFERASE 16 U/L (14-36); BILIRUBIN,DIRECT 0.1 mg/dL (0.0-0.4); BILIRUBIN,TOTAL 0.1 mg/dL (0.2-1.3); LIPASE 156.2 U/L (23-300); TOTAL PROTEIN 6.5 g/dL (6.3-8.2)
== END ==
LOC: OD 07:55
PROVIDERS: ATTEND Internal Medicine Gastroenterology
DX: R10.13 Epigastric pain (principal)
CPT/HCPCS: 36415; 80076; 83690; 85027

== ENCOUNTER → 2017-06-07 | Outpatient (CLI) | payer BC ==
[2017-06-07 11:45] LABS: FREE T3 4.33 pg/mL (2.77-5.27); FREE T4 (FREE THYROXINE) 1.12 ng/dL (0.78-2.19)
[2017-06-07 12:01] LABS: THYROID STIMULATING HORMONE < 0.01 uIU/mL (0.47-4.68)
== END ==
LOC: OD 09:08
PROVIDERS: ATTEND Psychiatry & Neurology Psychiatry
DX: F25.0 Schizoaffective disorder, bipolar type (principal); F90.0 Attention-deficit hyperactivity disorder, predominantly inattentive type
CPT/HCPCS: 36415; 80178; 84439; 84443; 84481

== ENCOUNTER → 2018-07-01 | Outpatient (CLI) | payer BC ==
[2018-07-01 09:00] LABS: ABSOLUTE BASOPHILS # (AUTO) 0.1 10^3/uL (0.0-0.2); ABSOLUTE EOSINOPHILS # (AUTO) 0.3 10^3/uL (0.0-0.6); ABSOLUTE MONOCYTES (AUTO) 0.4 10^3/uL (0.1-1.4); ABSOLUTE NEUT (AUTO) 3.7 10^3/uL (1.7-8.2); BASOPHILS % (AUTO) 0.9 % (0-2); EOSINOPHILS % (AUTO) 3.8 % (0-6); HEMATOCRIT 36.5 % (36.0-47.0); HEMOGLOBIN 12.5 g/dL (12.0-15.5); LYMPHOCYTES % (AUTO) 40.2 % (13-45); MEAN CORPUSCULAR HEMOGLOBIN 30.3 pg (27.0-33.4); MEAN CORPUSCULAR HGB CONC 34.2 g/dL (32.0-36.0); MEAN CORPUSCULAR VOLUME 89 fl (80-97); MONOCYTES % (AUTO) 5.4 % (3-13); PLATELET COUNT 273 10^3/uL (150-450); RED BLOOD COUNT 4.12 10^6/uL (3.72-5.28); RED CELL DISTRIBUTION WIDTH 13.4 % (11.5-14.0); SEGMENTED NEUTROPHILS % (AUTO) 49.7 % (42-78); TOTAL CELLS COUNTED % (AUTO) 100 %; WHITE BLOOD COUNT 7.3 10^3/uL (4.0-10.5)
[2018-07-01 09:45] LABS: ALANINE AMINOTRANSFERASE 20 U/L (9-52); ALBUMIN 3.8 g/dL (3.5-5.0); ALKALINE PHOSPHATASE 44 U/L (38-126); ANION GAP 7 (5-19); ASPARTATE AMINO TRANSFERASE 17 U/L (14-36); BILIRUBIN,DIRECT 0.3 mg/dL (0.0-0.4); BILIRUBIN,TOTAL 0.5 mg/dL (0.2-1.3); BLOOD UREA NITROGEN 11 mg/dL (7-20); CALCIUM 9.6 mg/dL (8.4-10.2); CARBON DIOXIDE 25 mmol/L (22-30); CHLORIDE 111 mmol/L (98-107); CHOLESTEROL 123.55 mg/dL (0-200); GLUCOSE 93 mg/dL (75-110); POTASSIUM 4.8 mmol/L (3.6-5.0); SODIUM 142.8 mmol/L (137-145); TOTAL PROTEIN 6.3 g/dL (6.3-8.2); TRIGLYCERIDES 78 mg/dL (<150)
[2018-07-01 09:56] LABS: DIRECT LDL 63 mg/dL (<100)
== END ==
LOC: OD 07:59
PROVIDERS: ATTEND Nurse Practitioner Psychiatric/Mental Health
DX: F41.1 Generalized anxiety disorder (principal)
CPT/HCPCS: 36415; 80053; 80061; 84443; 85025

== ENCOUNTER 2018-09-20 20:45 | Emergency (ER) | payer BC ==
[2018-09-20 21:05] VITALS: BP 110/65
== END 2018-09-20 21:40 | disposition left against medical advice (07) ==
LOC: ER 20:45
DX: Z53.21 Procedure and treatment not carried out due to patient leaving prior to being seen by health care provider (principal)

== ENCOUNTER → 2018-12-30 | Outpatient (CLI) | payer BC ==
[2018-12-30 09:50] LABS: ALBUMIN 4.4 g/dL (3.5-5.0); ANION GAP 10 (5-19); BLOOD UREA NITROGEN 16 mg/dL (7-20); CALCIUM 9.9 mg/dL (8.4-10.2); CARBON DIOXIDE 24 mmol/L (22-30); CHLORIDE 106 mmol/L (98-107); GLUCOSE 109 mg/dL (75-110); LITHIUM 0.8 mEq/L (0.6-1.2); PHOSPHORUS 3.9 mg/dL (2.5-4.5); POTASSIUM 4.4 mmol/L (3.6-5.0)
== END ==
LOC: OD 08:38
PROVIDERS: ATTEND Nurse Practitioner Psychiatric/Mental Health
DX: F25.0 Schizoaffective disorder, bipolar type (principal)
CPT/HCPCS: 36415; 80069; 80178

== ENCOUNTER → 2019-04-19 | Outpatient (CLI) | payer BC ==
--- NOTE | 2019-04-19 10:20 | RADIOLOGY REPORT (SQ) ---
EXAM DESCRIPTION: MRI PELVIS COMBO COMPLETED DATE/TIME: 04/19/2019 9:59 am REASON FOR STUDY: DYSURIA R39.9 UNSP SYMPTOMS AND SIGNS INVOLVING THE GENITOURINARY SY COMPARISON: None. TECHNIQUE: Multiplanar multisequence imaging performed without and with contrast including axial, sa gittal and coronal T2, axial T, axial gradient fat sat T1, axial, sagittal and coronal fat sat T2 pos t contrast. CONTRAST TYPE AND DOSE: 20 mL Dotarem. RENAL FUNCTION: None required. The patient is less than 50 years old. LIMITATIONS: None. FINDINGS: BLADDER AND URETHRA: No focal bladder wall thickening or nodularity. Smooth mucosa. The urethra has smooth contour with no focal asymmetry. No abnormal enhancement. No focal lesions. PELVIC SOFT TISSUES: Normal. No masses. UTERUS: Surgically absent. RIGHT OVARY: Not seen. No regional mass. LEFT OVARY: Not seen. No regional mass. FREE FLUID: None. PELVIC SKELETAL STRUCTURES: No abnormal marrow signal. EXTRA PELVIS SOFT TISSUES: No masses. OTHER: No other significant finding. IMPRESSION: 1. Status post hysterectomy. Ovaries not seen. 2. Normal appearance of the bladder in urethra and other visualized pelvic structures. TECHNICAL DOCUMENTATION: JOB ID: [id number] [employer]- All Rights Reserved Reading location - IP/workstation name: [email or web address]
--- NOTE | 2019-04-19 10:38 | RADIOLOGY REPORT (SQ) ---
EXAM DESCRIPTION: MRI ABDOMEN COMBO COMPLETED DATE/TIME: 04/19/2019 9:59 am REASON FOR STUDY: DYSURIA R39.9 UNSP SYMPTOMS AND SIGNS INVOLVING THE GENITOURINARY SY COMPARISON: None. TECHNIQUE: Precontrast T1, T2, STIR, in and out of phase T1 sequences. Postcontrast T1-weighted seq uences. CONTRAST TYPE AND DOSE: 20 mL Dotarem. RENAL FUNCTION: Not indicated. ACR Type II contrast agent associated with few, if any, unconfounded cases of NSF LIMITATIONS: None. FINDINGS: RIGHT KIDNEY: No solid masses. Minimal fullness in the right renal pelvis but no joby hy dronephrosis. LEFT KIDNEY: No solid masses. No hydronephrosis. OTHER SOLID ORGANS: No significant abnormality. VASCULAR STRUCTURES: No aortic aneurysm. No dissection. RETROPERITONEUM, PERITONEUM: No retroperitoneal adenopathy, hemorrhage or masses. MARROW SIGNAL IN THE SPINE AND VISUALIZED PELVIS: Normal marrow signal. No marrow replacement. IMPRESSION: NORMAL MRI OF THE KIDNEYS. TECHNICAL DOCUMENTATION: JOB ID: [id number] [employer]- All Rights Reserved Reading location - IP/workstation name: [email or web address]
== END ==
LOC: RAD 08:06
PROVIDERS: ATTEND Urology
DX: R30.0 Dysuria (principal)
CPT/HCPCS: 72197; 74183; A9576

== ENCOUNTER → 2019-12-03 | Outpatient (CLI) | payer BC ==
[2019-12-03 08:30] LABS: ABSOLUTE BASOPHILS # (AUTO) 0.1 10^3/uL (0.0-0.2); ABSOLUTE EOSINOPHILS # (AUTO) 0.3 10^3/uL (0.0-0.6); ABSOLUTE LYMPHOCYTES (AUTO) 3.2 10^3/uL (0.5-4.7); ABSOLUTE MONOCYTES (AUTO) 0.5 10^3/uL (0.1-1.4); ABSOLUTE NEUT (AUTO) 5.2 10^3/uL (1.7-8.2); BASOPHILS % (AUTO) 1.2 % (0-2); EOSINOPHILS % (AUTO) 2.8 % (0-6); HEMATOCRIT 38.5 % (36.0-47.0); HEMOGLOBIN 13.1 g/dL (12.0-15.5); LYMPHOCYTES % (AUTO) 34.3 % (13-45); MEAN CORPUSCULAR HEMOGLOBIN 29.6 pg (27.0-33.4); MEAN CORPUSCULAR HGB CONC 33.9 g/dL (32.0-36.0); MEAN CORPUSCULAR VOLUME 87 fl (80-97); MONOCYTES % (AUTO) 5.6 % (3-13); PLATELET COUNT 279 10^3/uL (150-450); RED BLOOD COUNT 4.41 10^6/uL (3.72-5.28); SEGMENTED NEUTROPHILS % (AUTO) 56.1 % (42-78); TOTAL CELLS COUNTED % (AUTO) 100 %; WHITE BLOOD COUNT 9.2 10^3/uL (4.0-10.5)
[2019-12-03 08:59] LABS: ALBUMIN 4.1 g/dL (3.5-5.0); ALKALINE PHOSPHATASE 47 U/L (38-126); ANION GAP 7 (5-19); ASPARTATE AMINO TRANSFERASE 16 U/L (14-36); BILIRUBIN,TOTAL 0.3 mg/dL (0.2-1.3); BLOOD UREA NITROGEN 9 mg/dL (7-20); CALCIUM 9.2 mg/dL (8.4-10.2); CARBON DIOXIDE 25 mmol/L (22-30); CHLORIDE 108 mmol/L (98-107); CHOLESTEROL 114.94 mg/dL (0-200); GLUCOSE 105 mg/dL (75-110); LITHIUM 1.1 mEq/L (0.6-1.2); POTASSIUM 4.1 mmol/L (3.6-5.0); TOTAL PROTEIN 6.5 g/dL (6.3-8.2); TRIGLYCERIDES 107 mg/dL (<150)
[2019-12-03 09:10] LABS: DIRECT LDL 55 mg/dL (<100)
[2019-12-03 09:43] LABS: FREE T4 (FREE THYROXINE) 0.86 ng/dL (0.78-2.19)
[2019-12-03 09:57] LABS: THYROID STIMULATING HORMONE 1.42 uIU/mL (0.47-4.68)
== END ==
LOC: OD 07:21
PROVIDERS: ATTEND Physician Assistant
DX: F41.1 Generalized anxiety disorder (principal); Z79.899 Other long term (current) drug therapy
CPT/HCPCS: 36415; 80053; 80061; 80178; 83036; 84439; 84443; 85025